=== PATIENT | male | born 1965 | race Caucasian/White ===

== ENCOUNTER 2016-12-18 18:31 | Emergency (ER) | payer BC | END 2016-12-18 22:03 | disposition home or self-care (01) | LOC: ER 18:31 | DX: R10.13 Epigastric pain (principal); M54.9 Dorsalgia, unspecified; R11.0 Nausea; I10 Essential (primary) hypertension; F17.210 Nicotine dependence, cigarettes, uncomplicated; Z88.5 Allergy status to narcotic agent | CPT/HCPCS: 36415; 96361; 96374; 96375 ==

== ENCOUNTER 2017-01-02 17:28 | Emergency (ER) | payer BC | END 2017-01-02 19:32 | disposition home or self-care (01) | LOC: ER 17:28 | DX: K28.9 Gastrojejunal ulcer, unspecified as acute or chronic, without hemorrhage or perforation (principal); J18.9 Pneumonia, unspecified organism; F17.210 Nicotine dependence, cigarettes, uncomplicated; Z88.5 Allergy status to narcotic agent | CPT/HCPCS: 36415; 96361; 96374; 96375 ==

== ENCOUNTER 2017-02-07 11:15 | Emergency (ER) | payer BC | END 2017-02-07 11:55 | disposition home or self-care (01) | LOC: ER 11:15 | DX: S91.341A Puncture wound with foreign body, right foot, initial encounter (principal); F17.210 Nicotine dependence, cigarettes, uncomplicated; Z88.5 Allergy status to narcotic agent; W25.XXXA Contact with sharp glass, initial encounter; Y92.009 Unspecified place in unspecified non-institutional (private) residence as the place of occurrence of the external cause ==